=== PATIENT | male | born 1960 | race Caucasian/White ===

== ENCOUNTER → 2018-08-13 09:06 | Outpatient (CLI) | payer SELFPAY ==
[2018-08-13 11:19] LABS: Hematocrit 41.7 % (41-53); Hemoglobin 14.4 g/dL (13.5-17.5); Mean Corpuscular HGB Conc 34.4 % (30-36); Mean Corpuscular Hemoglobin 34.6 PG (26-34); Mean Corpuscular Volume 100.7 fL (80-100); Platelet Count 141 X10^3/uL (150-400); Red Blood Cell Count 4.15 X10^6/uL (4.5-5.9); Red Cell Distribution Width 13.9 % (11.6-14.8); White Blood Cell Count 6.6 X10^3/uL (4.5-11.0)
== END ==
PROVIDERS: Visit Provider Nurse Practitioner Family
DX: R19.7 Diarrhea, unspecified (principal)
CPT/HCPCS: 36415; 85027; 87045; 87177; 87899

== ENCOUNTER → 2018-08-14 08:18 | Outpatient (CLI) | payer SELFPAY | PROVIDERS: Visit Provider Nurse Practitioner Family | DX: R19.7 Diarrhea, unspecified (principal) | CPT/HCPCS: 87045; 87177; 87899 ==

== ENCOUNTER → 2019-12-07 09:34 | Outpatient (CLI) | payer OTHER, MEDICAID, SELFPAY ==
--- NOTE | 2019-12-07 09:36 | DI.RAD.S_ITS ---
PROCEDURE: XR SHOULDER RT MIN 2V INDICATIONS: right shoulder pain TECHNIQUE: 3 views of the shoulder were acquired. COMPARISON: None. FINDINGS: Bones: No fractures or dislocations. No suspicious bony lesions. Visualized ribs appear intact. Subchondral cystic change near the insertion of the supraspinatus tendon on the humerus suggests possible supraspinatus tendinopathy. Soft tissues: No suspicious soft tissue calcifications. IMPRESSION: No evidence acute bony abnormality of the right shoulder. If clinical suspicion and/or symptoms persist, further assessment with repeat plain films, or advanced imaging (e.g., CT, MRI, or bone scan) may be helpful for further assessment. Dictated by: Harvey Mustafa M.D. on 12/07/2019 at 10:06 Approved by: Harvey Mustafa M.D. on 12/07/2019 at 10:07
== END ==
PROVIDERS: Referring Provider Physician Assistant; Visit Provider Physician Assistant
DX: M25.511 Pain in right shoulder (principal)
CPT/HCPCS: 73030

== ENCOUNTER → 2019-12-15 07:13 | Outpatient (CLI) | payer OTHER, MEDICAID, SELFPAY ==
--- NOTE | 2019-12-15 07:15 | DI.MRI.S_ITS ---
PROCEDURE: MR SHOULDER RT WO CON INDICATIONS: shoulder pain, limited ROM TECHNIQUE: Noncontrast oblique coronal T2 fast spin echo with fat saturation, oblique sagittal T1 spin echo and T2 fast spin echo with fat saturation, axial T1 spin echo and T2 fast spin echo with fat saturation through the shoulder. COMPARISON: [facility], CR, XR SHOULDER RT MIN 2V, 12/07/2019, 8:32. FINDINGS: Image quality: There are motion artifacts. Rotator cuff: There is full-thickness tear of the supraspinatus tendon with tendon retraction to the musculotendinous junction. There is high-grade partial -to-thickness tear of the infraspinous tendon and subscapularis tendons with thickening, irregularity and abnormal signal of both tendons consistent with severe tendinitis. There is no rotator cuff muscle atrophy. Bones and bursae: No bone marrow contusions or fractures. There is moderate acromioclavicular and glenohumeral joint degeneration. The acromion demonstrates conventional anatomy, without an os acromiale. There is subacromial-subdeltoid and subcoracoid bursal fluid consistent with bursitis. Capsule and soft tissues: There is degenerative fraying of the anterior and posterior glenoid labrum. A small paralabral cyst is noted in the posterior labrum. In the absence of intra-articular contrast, the glenohumeral ligaments appear intact. The long head of the biceps tendon is torn. The intra-articular portion of the long head of the biceps tendon is not well visualized, likely due to tendon retraction. The rotator interval appears normal, without fibrosis. The coracohumeral ligament is normal in thickness. IMPRESSION: 1. Full-thickness tear of the supraspinatus tendon with tendon retraction. No supraspinatus muscle atrophy. 2. High-grade partial-thickness tear and severe tendinitis of the infraspinatus and subscapularis tendons. 3. Torn long head of the biceps tendon. The intra-articular portion of the long head of the biceps tendon is not well seen, likely secondary to tendon retraction. 4. Subacromial-subdeltoid and subcoracoid bursal fluid consistent with bursitis. 5. Degenerative tear of the glenoid labrum. 6. Moderate acromioclavicular and glenohumeral joint degeneration. Dictated by: Lillian Hassan M.D. on 12/15/2019 at 8:34 Approved by: Lillian Hassan M.D. on 12/15/2019 at 9:39
== END ==
PROVIDERS: PCP Nurse Practitioner Family; Referring Provider Nurse Practitioner Family; Visit Provider Nurse Practitioner Family
DX: M25.511 Pain in right shoulder (principal); M75.121 Complete rotator cuff tear or rupture of right shoulder, not specified as traumatic; S46.111A Strain of muscle, fascia and tendon of long head of biceps, right arm, initial encounter; S43.491A Other sprain of right shoulder joint, initial encounter; M19.011 Primary osteoarthritis, right shoulder
CPT/HCPCS: 73221

== ENCOUNTER → 2019-12-22 08:59 | Outpatient (CLI) | payer OTHER, MEDICAID, SELFPAY ==
[2019-12-22 10:24] LABS: Hematocrit 43.5 % (41-53); Hemoglobin 14.6 g/dL (13.5-17.5); Mean Corpuscular HGB Conc 33.6 % (30-36); Mean Corpuscular Hemoglobin 35.1 PG (26-34); Mean Corpuscular Volume 104.4 fL (80-100); Red Blood Cell Count 4.16 X10^6/uL (4.5-5.9); Red Cell Distribution Width 13.6 % (11.6-14.8)
[2019-12-22 10:26] LABS: Alanine Aminotransferase 22 IU/L (<50); Albumin 4.2 g/dL (3.5-5.0); Albumin Globulin Ratio 1.5 (1.0-2.8); Alkaline Phosphatase 56 U/L (38-126); Aspartate Aminotransferase 32 IU/L (17-59); BUN Creatinine Ratio 20.4 (6-22); Bilirubin Total 0.4 mg/dL (0.2-1.3); Blood Urea Nitrogen 19 mg/dL (9-20); Calcium 9.3 mg/dL (8.4-10.2); Carbon Dioxide 26 mmol/L (22-32); Chloride 106 mmol/L (98-107); Cholesterol 183 mg/dL (140-199); Estimated Glomerular Filt Rate > 60.0 mL/min (>60); Globulin 2.8 g/dL (1.7-4.1); Glucose 104 mg/dL (80-110); HDL Cholesterol 78 mg/dL (40-60); HEMOLYSIS < 15 (0-50); LDL Cholesterol Calculated 93 mg/dL (<100); Sodium 138 mmol/L (137-145); Triglycerides 61 mg/dL (35-150)
[2019-12-22 10:58] LABS: Prostate Specific Antigen Scrn 0.264 ng/mL (0.1-4.0)
[2019-12-22 11:08] LABS: Platelet Count 119 X10^3/uL (150-400)
[2019-12-23 16:19] LABS: Add Manual Diff / Slide Review NO; Basophils Percent Auto 2.3 % (0-2); Eosinophils Percent Auto 0.3 % (2-4); Lymphocytes Absolute Auto 3 /uL (1100-4500); Lymphocytes Percent Auto 38.7 % (25-40); Monocytes Percent Auto 11.7 % (3-14); Neutrophils Absolute Auto 4 /uL (1500-7000)
[2019-12-23 16:20] LABS: Basophils Absolute Auto 0 /uL (0-100); Eosinophils Absolute Auto 0 /uL (0-450); Monocytes Absolute Auto 1 /uL (0-900)
== END ==
PROVIDERS: PCP Nurse Practitioner Family; Referring Provider Nurse Practitioner Family; Visit Provider Nurse Practitioner Family
DX: Z13.6 Encounter for screening for cardiovascular disorders (principal); Z12.5 Encounter for screening for malignant neoplasm of prostate; Z72.0 Tobacco use
CPT/HCPCS: 36415; 80053; 80061; 85025; 85027; G0103

== ENCOUNTER → 2019-12-24 09:19 | Outpatient (CLI) | payer OTHER, MEDICAID, SELFPAY ==
[2019-12-24 10:09] LABS: Add Manual Diff / Slide Review NO; Basophils Absolute Auto 0 /uL (0-100); Basophils Percent Auto 0.5 % (0-2); Eosinophils Absolute Auto 0 /uL (0-450); Eosinophils Percent Auto 0.3 % (2-4); Hematocrit 41.4 % (41-53); Hemoglobin 14.1 g/dL (13.5-17.5); Lymphocytes Absolute Auto 2300 /uL (1100-4500); Lymphocytes Percent Auto 32.1 % (25-40); Mean Corpuscular Hemoglobin 35.2 PG (26-34); Mean Corpuscular Volume 103.5 fL (80-100); Monocytes Absolute Auto 900 /uL (0-900); Monocytes Percent Auto 12.4 % (3-14); Neutrophils Absolute Auto 3900 /uL (1500-7000); Neutrophils Percent Auto 54.7 % (50-75); Platelet Count 116 X10^3/uL (150-400); Red Cell Distribution Width 13.6 % (11.6-14.8); White Blood Cell Count 7.2 X10^3/uL (4.5-11.0)
--- NOTE | 2019-12-29 13:35 | ONC.MSW ---
Description: New Referral Navigation Reason for Referral: Thrombocytopenia Activity: Reviewed pt's referral for acuity, medical status, and immediate needs. Forwarded to scheduling for next available initial consult time.
== END ==
PROVIDERS: PCP Nurse Practitioner Family; Referring Provider Nurse Practitioner Family; Visit Provider Nurse Practitioner Family
DX: D69.6 Thrombocytopenia, unspecified (principal); D70.9 Neutropenia, unspecified
CPT/HCPCS: 36415; 85025

== ENCOUNTER → 2019-12-30 15:25 | Outpatient (CLI) | payer OTHER, MEDICAID, SELFPAY ==
[2019-12-31 10:49] LABS: COVID19 Sendout Not Detected (Not Detect)
== END ==
PROVIDERS: PCP Nurse Practitioner Family; Visit Provider Physician Assistant
DX: Z11.59 Encounter for screening for other viral diseases (principal)
CPT/HCPCS: 87635

== ENCOUNTER 2020-01-02 07:06 | Day surgery (SDC) | payer OTHER, MEDICAID, SELFPAY ==
[2020-01-02 07:36] VITALS: BMI 24.7
[2020-01-02 07:45] VITALS: BP 143/86; PULSE 84; RESP 12; TEMP 36.4; O2SAT 98
[2020-01-02] MEDS: LACTATED RINGERS 1,000 ML 200 ML IV (07:50)
--- NOTE | 2020-01-02 08:08 | PM.HP.1 ---
History of Present Illness History of Present Illness Date Patient Seen: 01/02/20 Time Patient Seen: 08:09 Chief complaint: SDC Narrative: The patient presents for colorectal sreening. They had a previous colonoscopy 12 years ago that was normal. No personal or family history of colon cancer. On further history denies any recent gastrointestinal symptoms. No nausea, vomiting, abdominal pain, loss of appetite, unexplained weight loss, change in bowel habits, diarrhea, constipation, melena, hematochezia, or bright red blood per rectum. Patient History Medical History Concussion (Acute) Decreased platelet count (Acute) Encounter for screening for malignant neoplasm of prostate (Acute) Neutropenia (Acute) Screening for malignant neoplasm of colon (Acute) Tobacco abuse (Acute) Family & Social History Tobacco & Substance use: Smoking Status Current every day smoker Smoking packs per day 0.5 alcohol intake current alcohol intake frequency 3 or more drinks per day Substance Use Type marijuana Meds Home Medications and Allergies Home Medications Medication Instructions Recorded Confirmed Type naproxen 500 mg tablet 500 mg PO BID #30 tab 12/13/19 01/02/20 Rx Allergies Allergy/AdvReac Type Severity Reaction Status Date / Time No Known Drug Allergies Allergy Verified 01/02/20 07:35 Review of Systems Review of Systems Narrative: A 10 point review of systems is negative except as noted in the HPI Exam Vital Signs (past 8 hours): - 01/02/20 07:45 Temperature 97.5 F L Pulse Rate 84 Respiratory Rate 12 Blood Pressure 143/86 H Pulse Oximetry 98 Oxygen Delivery Method Room Air Narrative Exam Narrative: General-no acute distress, well nourished HEENT-moist mucous membranes, no scleral icterus Neck-supple, no lymphadenopathy Chest- non labored respirations, clear to auscultation bilaterally Cardiac-regular rate no peripheral edema Abdomen-soft, nontender, non distended Extremities-warm, well perfused Neurological-alert and oriented, no focal deficits Assessment & Plan Assessment and plan (1) Screening for malignant neoplasm of colon: Status: Acute Assessment & Plan narrative: The patient requires colorectal screening and colonoscopy is recommended. Technical details were discussed. Risks, benefits, alternatives explained. Risks including but not limited to myocardial infarction, aspiration, bleeding, pain, missed lesion, incomplete examination, need for further radiographic studies, colonic perforation, and need for major abdominal surgery were discussed. All questions were answered to their satisfaction, and they are in agreement with this plan. COVID-19 COVID-19 status: Negative
[2020-01-02] MEDS: MIDAZOLAM 5 MG/5 ML VIAL IV (08:22)
[2020-01-02] MEDS: fentaNYL 250 MCG/5 ML INJ IV (08:22)
--- NOTE | 2020-01-02 08:42 | PM.OP.ENDO ---
Operative Date/Time/Diagnoses Date of procedure: 01/02/20 Time of procedure: 08:42 Pre-op diagnosis: Screening colonoscopy Post-op diagnosis: same Procedure & Clinicians Study performed: Colonoscopy Same procedure as scheduled: Yes Indications: 59-year-old man last colonoscopy 12 years ago presents for routine screening Surgeon: Keshawn Perez Procedure Notes SCOAP/Timeout: Performed Procedure in detail: Patient placed in left lateral recumbent position. Time out was performed. Procedural sedation was administered with Versed and Fentanyl. Examination began with a thorough inspection of the perianal area there was no evidence of fissures, fistulae, external hemorrhoids or cutaneous malignancy. The colonoscopy scope was then placed into the rectum the the lumen was insufflated with air. The scope was carefully advanced forward. Ultimately the cecum was intubated and confirmed by identification of the ileocecal valve and the confluence of the taenia. The scope was then slowly withdrawn examining colon thoroughly in all directions. In the rectum the rectal columns were identified and retroflexion of the scope was performed for inspection of the distal rectum and anal canal. The colonoscopy was notable for the followin. Quality of the preparation-for 2. No masses or polyps 3. Sigmoid diverticulosis Scope withdrawal time: 6 Sedation minutes: 20 Findings: diverticulosis Specimen(s): none sent Complications: none Impression: Diverticulosis Post-procedure Recommendations: Colonscopy in 10 years and High fiber diet Disposition: same day surgery
[2020-01-02 08:47] VITALS: BP 120/87; PULSE 71; RESP 12; TEMP 36.4; O2SAT 97
[2020-01-02 08:50] VITALS: BP 117/82; PULSE 96; RESP 10; O2SAT 99
[2020-01-02 09:02] VITALS: BP 110/77; PULSE 70; RESP 14; TEMP 36.7; O2SAT 97
--- NOTE | 2020-01-02 09:05 | SUR.PHASEI ---
reported off to Edward Tafoya Rn. Pt awake, oriented, wants to go home. IV dc'd, clothes given.
== END 2020-01-02 09:07 | disposition home or self-care (01) ==
PROVIDERS: PCP Nurse Practitioner Family; Referring Provider Nurse Practitioner Family; Visit Provider Surgery
PROC: 0DJD8ZZ Inspection of Lower Intestinal Tract, Via Natural or Artificial Opening Endoscopic (ICD-10-PCS; CPT 45378; principal; 2020-01-02 08:30)
DX: Z12.11 Encounter for screening for malignant neoplasm of colon (principal); K57.30 Diverticulosis of large intestine without perforation or abscess without bleeding; F17.210 Nicotine dependence, cigarettes, uncomplicated
CPT/HCPCS: G0121; 99152; J2250; J3010

== ENCOUNTER 2020-01-07 14:25 | Emergency (ER) | payer OTHER, MEDICAID, SELFPAY ==
[2020-01-07 14:35] VITALS: BP 186/91; PULSE 66; RESP 14; TEMP 36.7; O2SAT 100; BMI 25.8
--- NOTE | 2020-01-07 14:38 | ED.SOB ---
HPI - SOB/Dyspnea General Chief Complaint: Shortness of Breath/Dyspnea Stated Complaint: SOB, dizziness, sweating Time Seen by Provider: 01/07/20 14:27 Source: patient and EMS Mode of arrival: EMS Limitations: no limitations History of Present Illness HPI Narrative: Patient postop day 1 status post right shoulder rotator cuff surgery at [facility] in [place] got home yesterday afternoon around 3:00 p.m. has been doing well overnight until 30 minutes ago had sudden onset of diaphoresis dizziness, nausea and dyspnea. Denies any chest pain denies any calf pain. Given Zofran by EMS. No nausea at this time. Denies any dyspnea or sweating at this time. Related Data Previous Rx's Medication Instructions Recorded naproxen 500 mg tablet 500 mg PO BID #30 tab 12/13/19 Allergies Allergy/AdvReac Type Severity Reaction Status Date / Time No Known Drug Allergies Allergy Verified 01/02/20 07:35 Review of Systems Review of Systems Narrative: GENERAL: Denies chills, fatigue, malaise, fever, sweats. HEENT: Denies sinus pain, ear pain, sore throat, difficulty swallowing, dizziness. RESPIRATORY: Complains dyspnea, denies cough, wheezing, hemoptysis, sputum. CARDIOVASCULAR: Denies chest pain, palpitations, orthopnea, edema, complains of diaphoresis GASTROINTESTINAL: Complains nausea, denies vomiting, abdominal pain, diarrhea, constipation, melena. : Denies dysuria, frequency, incontinence, hematuria, urinary retention. MUSCULOSKELETAL: denies weakness, joint pain, or bony pain SKIN: Denies rash, skin lesions NEUROLOGIC: Denies weakness, headache, numbness, change in speech, confusion, seizures, incoordination. PSYCHIATRIC: No concerning psychosocial issues. ROS Unobtainable: All systems reviewed & are unremarkable except as noted in HPI and below Patient History Medical History Concussion (Acute) Decreased platelet count (Acute) Encounter for screening for malignant neoplasm of prostate (Acute) Neutropenia (Acute) Screening for malignant neoplasm of colon (Acute) Tobacco abuse (Acute) Social History Smoking Status: Current every day smoker Tobacco: How many years used: 40 quit status: considering quitting (Patient given smoking cessation handout) second hand exposure: No alcohol intake: current substance use type: marijuana (smoke, 2-3x/week) Smoking Status: Current every day smoker alcohol intake frequency: 3 or more drinks per day Substance Use Type: marijuana Exam Narrative Exam Narrative: GENERAL: patient appears stated age. Well-nourished, well-developed patient, in no distress, not toxic HEAD: Atraumatic. Normocephalic. EYES: Pupils equal round and reactive. Extraocular motions intact. No scleral icterus. No injection or drainage. ENT: Nose without bleeding, purulent drainage. Throat without erythema, tonsillar hypertrophy or exudate. Airway patent. NECK: Trachea midline. Non tender CARDIOVASCULAR: Regular rate and rhythm without murmurs, gallops, or rubs. RESPIRATORY: Clear to auscultation. Breath sounds equal bilaterally. No wheezes, rales, or rhonchi. GASTROINTESTINAL: Abdomen soft, non-tender, nondistended. EXTREMITIES: Right upper extremity in sling. No calf tenderness BACK: Nontender without deformity or crepitance. No flank tenderness. NEURO: AOx4. SKIN: No rash or erythema of visible areas PSYCH: Not anxious, is cooperative Initial Vital Signs Initial Vital Signs: Vital Signs Temperature 98.1 F 01/07/20 14:35 Pulse Rate 66 01/07/20 14:35 Respiratory Rate 14 01/07/20 14:35 Blood Pressure 186/91 H 01/07/20 14:35 Pulse Oximetry 100 01/07/20 14:35 Course Course Course Narrative: No new issues during course of stay here. Decision to Admit Date: 01/07/20 Decision to Admit time: 16:05 Orders Ordered: ED Orders 01/07/20 14:37 Consult to Respiratory Therapy Evaluate & Treat EKG-12 Lead Stat 01/07/20 14:38 XR chest 1V Stat Complete Blood Count AUTO DIFF Stat Comprehensive Metabolic Panel Stat D Dimer Stat Lactate (Lactic Acid) Stat Partial Thromboplastin Time Stat Procalcitonin Stat Prothrombin Time INR Stat Troponin & CK Cardiac Panel Stat 01/07/20 16:20 COVID19 -ED/INPAT/OR/L&D Stat 01/07/20 16:30 CT angio chest PE protocol Stat 01/07/20 16:40 Blood Culture Stat Discontinued Medications Albuterol/Ipratropium (Duoneb) 3 ml INH NOW ONE Stop: 01/07/20 14:38 Last Admin: 01/07/20 14:48 Dose: 3 ml Documented by: MODESTA Hydromorphone HCl (Dilaudid) 1 mg IV NOW ONE Stop: 01/07/20 17:36 Last Admin: 01/07/20 17:38 Dose: 1 mg Documented by: APOLONIA Ceftriaxone Sodium/Dextrose (Rocephin) 1 gm in 50 mls @ 100 mls/hr IV NOW ONE Stop: 01/07/20 16:32 Last Admin: 01/07/20 16:57 Dose: 100 mls/hr Documented by: LEATHA Sodium Chloride (Normal Saline 0.9%) 500 mls @ 1,000 mls/hr IV BOLUS ONE Stop: 01/07/20 16:59 Last Admin: 01/07/20 16:58 Dose: 1,000 mls/hr Documented by: LEATHA Methylprednisolone (Solu-Medrol 125 Mg Vial) 125 mg IV NOW ONE Stop: 01/07/20 14:38 Last Admin: 01/07/20 14:49 Dose: 125 mg Documented by: APOLONIA Morphine Sulfate (Morphine) 4 mg IV NOW ONE Stop: 01/07/20 15:50 Last Admin: 01/07/20 16:18 Dose: 4 mg Documented by: SRI Ondansetron HCl (Zofran) 4 mg IV NOW ONE Stop: 01/07/20 15:50 Last Admin: 01/07/20 16:19 Dose: 4 mg Documented by: SRI Reevaluation(s) Reevaluation #1: Spoke with patient blood lab results. Understands need for observation overnight. Time: 16:05 Consultations Consultation #1: Spoke with Orthopedics from [facility]...Robles Wright, with dr juan, agrees patient should be observed overnight. At this time nonsurgical. Agrees with blood cultures and Rocephin. Time: 16:06 Consultation #2: Spoke with [facility], hospitalist Dr. Alonso, will accept patient Would like patient to have CT chest PE protocol before transfer Time: 16:35 Vital Signs Vital signs: Vital Signs - 8 hr 01/07/20 14:35 01/07/20 15:27 01/07/20 16:30 Temperature 98.1 F Pulse Rate 66 62 Respiratory Rate 14 16 Blood Pressure 186/91 H 170/82 H Pulse Oximetry 100 97 97 01/07/20 17:45 Temperature Pulse Rate 67 Respiratory Rate 16 Blood Pressure 214/97 H Pulse Oximetry 98 MDM - SOB/Dyspnea Differential Diagnosis Differential diagnosis: Likely pulmonary embolism and other (Angina/unstable angina) Lab Data Attestation: I reviewed the patient's lab results. Result diagrams: 01/07/20 14:38 01/07/20 14:38 Labs: Lab Results 01/07/20 01/07/20 01/07/20 Range/Units 14:38 14:38 14:38 WBC 20.1 H (4.5-11.0) X10^3/uL RBC 3.73 L (4.5-5.9) X10^6/uL Hgb 12.8 L (13.5-17.5) g/dL Hct 38.4 L (41-53) % MCV 102.9 H (80-100) fL MCH 34.3 H (26-34) PG MCHC 33.4 (30-36) % RDW 13.4 (11.6-14.8) % Plt Count 107 L (150-400) X10^3/uL Neut % (Auto) 64.5 (50-75) % Lymph % (Auto) 21.0 L (25-40) % [place] % (Auto) 14.0 (3-14) % Eos % (Auto) 0.1 L (2-4) % Baso % (Auto) 0.4 (0-2) % Neut # (Auto) 22242 H (6369-9677) /uL Lymph # (Auto) 4200 (7593-8114) /uL [place] # (Auto) 2800 H (0-900) /uL Eos # (Auto) 0 (0-450) /uL Baso # (Auto) 100 (0-100) /uL PT 10.9 (10.1-12.7) SECONDS INR 1.0 (0.9-1.3) APTT 24 L (26.4-36.2) SECONDS D-Dimer < 200 (<230) ng/mL Sodium 133 L (137-145) mmol/L Potassium 3.4 (3.4-5.1) mmol/L Chloride 100 (98-107) mmol/L Carbon Dioxide 29 (22-32) mmol/L BUN 19 (9-20) mg/dL Creatinine 0.99 (0.66-1.25) mg/dL Estimated GFR > 60.0 (>60) mL/min BUN/Creatinine Ratio 19.2 (6-22) Glucose 151 H (80-110) mg/dL Lactate (0.7-2.1) mmol/L Calcium 9.1 (8.4-10.2) mg/dL Total Bilirubin 0.4 (0.2-1.3) mg/dL AST 30 (17-59) IU/L ALT 19 (<50) IU/L Alkaline Phosphatase 47 (38-126) U/L Total Creatine Kinase 311 H (55-170) U/L CK-MB (CK-2) 2.55 H (<2.37) ng/mL CK-MB (CK-2) Rel Index 0.8 L (1.5-5.0) % Troponin I < 0.012 (0.01-0.034) ng/mL Total Protein 6.7 (6.3-8.2) g/dL Albumin 4.0 (3.5-5.0) g/dL Globulin 2.7 (1.7-4.1) g/dL Albumin/Globulin Ratio 1.5 (1.0-2.8) Procalcitonin (<0.5) ng/mL COVID-19 PCR (Negative) 01/07/20 01/07/20 01/07/20 Range/Units 14:38 14:38 16:20 WBC (4.5-11.0) X10^3/uL RBC (4.5-5.9) X10^6/uL Hgb (13.5-17.5) g/dL Hct (41-53) % MCV (80-100) fL MCH (26-34) PG MCHC (30-36) % RDW (11.6-14.8) % Plt Count (150-400) X10^3/uL Neut % (Auto) (50-75) % Lymph % (Auto) (25-40) % [place] % (Auto) (3-14) % Eos % (Auto) (2-4) % Baso % (Auto) (0-2) % Neut # (Auto) (6091-5291) /uL Lymph # (Auto) (5847-4986) /uL [place] # (Auto) (0-900) /uL Eos # (Auto) (0-450) /uL Baso # (Auto) (0-100) /uL PT (10.1-12.7) SECONDS INR (0.9-1.3) APTT (26.4-36.2) SECONDS D-Dimer (<230) ng/mL Sodium (137-145) mmol/L Potassium (3.4-5.1) mmol/L Chloride (98-107) mmol/L Carbon Dioxide (22-32) mmol/L BUN (9-20) mg/dL Creatinine (0.66-1.25) mg/dL Estimated GFR (>60) mL/min BUN/Creatinine Ratio (6-22) Glucose (80-110) mg/dL Lactate 2.7 H (0.7-2.1) mmol/L Calcium (8.4-10.2) mg/dL Total Bilirubin (0.2-1.3) mg/dL AST (17-59) IU/L ALT (<50) IU/L Alkaline Phosphatase (38-126) U/L Total Creatine Kinase (55-170) U/L CK-MB (CK-2) (<2.37) ng/mL CK-MB (CK-2) Rel Index (1.5-5.0) % Troponin I (0.01-0.034) ng/mL Total Protein (6.3-8.2) g/dL Albumin (3.5-5.0) g/dL Globulin (1.7-4.1) g/dL Albumin/Globulin Ratio (1.0-2.8) Procalcitonin < 0.05 (<0.5) ng/mL COVID-19 PCR Negative (Negative) Imaging Data Chest x-ray: Radiologist's Impression: [address] [address] XRay Report Signed Patient: Adal Nugent LMR#: [id number] : 9Acct:[id number] Age/Sex: 59 / MDate of Service: 01/07/20 Loc: ED Accession Number: [id number] Procedure: XR chest 1V Ordering Provider: Christofer Darling MD PROCEDURE: XR CHEST 1V INDICATIONS: Dyspnea TECHNIQUE: One view of the chest was acquired. COMPARISON: [facility], CHEST 2 VIEW, 12/12/2014, 9:47. FINDINGS: Surgical changes and devices: None. Lungs and pleura: Lungs are clear. No pleural effusions or pneumothorax. Mediastinum: Mediastinal contours appear normal. Heart size is normal. Bones and chest wall: No suspicious bony lesions. Overlying soft tissues appear unremarkable. IMPRESSION: Normal for age, source of current dyspnea symptoms is not seen. Dictated by: Jaquan Purvis M.D. on 01/07/2020 at 15:30 Approved by: Jaquan Purvis M.D. on 01/07/2020 at 15:30 CT scan - chest: Radiologist's Impression: [address] [address] [address] Scan Report Signed Patient: Adal Nugent LMR#: [id number] : 9Acct:[id number] Age/Sex: 59 / MDate of Service: 01/07/20 Loc: ED Accession Number: [id number] Procedure: CT angio chest PE protocol Ordering Provider: Christofer Darling MD PROCEDURE: CT ANGIO CHEST PE PROTOCOL INDICATIONS: Dyspnea TECHNIQUE: After the administration of intravenous contrast, 2 mm thick sections acquired from the pulmonary apices to the posterior costophrenic angles. 3-dimensional maximum intensity projection (MIP) coronal and sagittal reformats were then acquired through the thorax. For radiation dose reduction, the following was used: automated exposure control, adjustment of mA and/or kV according to patient size. COMPARISON: [facility], CHEST 2 VIEW, 12/12/2014, 9:47. [facility], XR CHEST 1V, 01/07/2020, 14:44. FINDINGS: Image quality: Excellent. Pulmonary arteries: Pulmonary arteries are normal in size, and demonstrate no intraluminal filling defects to suggest central pulmonary embolism. Lungs and pleura: Mild dependent atelectasis can be seen at the lung bases. No pleural effusions or pneumothorax. Central and peripheral airways are patent. Mediastinum: Heart size is normal, without pericardial effusion. No mediastinal or hilar adenopathy. Thoracic aorta is normal in caliber and enhancement. Esophagus is normal in caliber, without hiatal hernia. Bones and chest wall: No suspicious bony lesions. Postoperative change of the right shoulder can be seen. Ribs and thoracic spine appear intact throughout. Thyroid gland is partially obscured. No axillary or supraclavicular adenopathy. Abdomen: Visualized upper abdominal solid organs appear normal in the early arterial phase of enhancement. IMPRESSION: Negative for pulmonary embolism. Mild dependent atelectasis. Right shoulder postoperative change. Dictated by: Rafa Richardson M.D. on 01/07/2020 at 16:42 Approved by: Rafa Richardson M.D. on 01/07/2020 at 16:44 ECG Data Attestation: I personally reviewed and interpreted this ECG as follows: Interpretation: Sinus rhythm. Rate 62, no ST elevation MDM Narrative Medical decision making narrative: Appropriate for transfer to [facility] for continuity of care. Leukocytosis indicates for observation. Patient not toxic appearing, at this time will hold on complete sepsis protocol Discharge Plan Departure Patient Disposition: [facility] Clinical Impression: Acute dyspnea Leukocytosis Qualifiers: Leukocytosis type: unspecified Qualified Code(s): D72.829 - Elevated white blood cell count, unspecified Prescriptions: No Action naproxen 500 mg tablet 500 mg PO BID Qty: 30 RF: 0 Referrals: Rashel Layne ARNP [Primary Care Provider] -
[2020-01-07 14:48] LABS: Add Manual Diff / Slide Review NO; Basophils Absolute Auto 100 /uL (0-100); Basophils Percent Auto 0.4 % (0-2); Eosinophils Absolute Auto 0 /uL (0-450); Eosinophils Percent Auto 0.1 % (2-4); Hematocrit 38.4 % (41-53); Hemoglobin 12.8 g/dL (13.5-17.5); Lymphocytes Absolute Auto 4200 /uL (1100-4500); Mean Corpuscular HGB Conc 33.4 % (30-36); Mean Corpuscular Hemoglobin 34.3 PG (26-34); Mean Corpuscular Volume 102.9 fL (80-100); Monocytes Absolute Auto 2800 /uL (0-900); Neutrophils Absolute Auto 13000 /uL (1500-7000); Neutrophils Percent Auto 64.5 % (50-75); Platelet Count 107 X10^3/uL (150-400); Red Blood Cell Count 3.73 X10^6/uL (4.5-5.9); Red Cell Distribution Width 13.4 % (11.6-14.8); White Blood Cell Count 20.1 X10^3/uL (4.5-11.0)
[2020-01-07] MEDS: ALBUTEROL/IPRATROPIUM 3 ML AMPUL INH (14:48)
[2020-01-07] MEDS: methylPREDNISolone 125 MG/2 ML VIAL IV (14:49)
[2020-01-07 15:01] LABS: Prothrombin Time 10.9 SECONDS (10.1-12.7)
[2020-01-07 15:04] LABS: PTT Partial Thromboplastin Tim 24 SECONDS (26.4-36.2)
[2020-01-07 15:05] LABS: Alanine Aminotransferase 19 IU/L (<50); Albumin Globulin Ratio 1.5 (1.0-2.8); Alkaline Phosphatase 47 U/L (38-126); Aspartate Aminotransferase 30 IU/L (17-59); BUN Creatinine Ratio 19.2 (6-22); Bilirubin Total 0.4 mg/dL (0.2-1.3); Blood Urea Nitrogen 19 mg/dL (9-20); Calcium 9.1 mg/dL (8.4-10.2); Carbon Dioxide 29 mmol/L (22-32); Chloride 100 mmol/L (98-107); Creatine Kinase 311 U/L (55-170); Estimated Glomerular Filt Rate > 60.0 mL/min (>60); Globulin 2.7 g/dL (1.7-4.1); Glucose 151 mg/dL (80-110); HEMOLYSIS < 15 (0-50); Potassium 3.4 mmol/L (3.4-5.1); Sodium 133 mmol/L (137-145); Total Protein 6.7 g/dL (6.3-8.2)
[2020-01-07 15:07] LABS: D Dimer < 200 ng/mL (<230)
[2020-01-07 15:16] LABS: Troponin I < 0.012 ng/mL (0.01-0.034)
[2020-01-07 15:20] LABS: CKMB % Relative Index 0.8 % (1.5-5.0); Creatine Kinase MB 2.55 ng/mL (<2.37)
[2020-01-07 15:27] VITALS: O2SAT 97
[2020-01-07] MEDS: MORPHINE 4 MG/ML INJ IV (16:18)
[2020-01-07] MEDS: ONDANSETRON 4 MG/2 ML INJ IV (16:19)
[2020-01-07 16:30] VITALS: BP 170/82; PULSE 62; RESP 16; O2SAT 97
--- NOTE | 2020-01-07 16:30 | DI.CT.S_ITS ---
PROCEDURE: CT ANGIO CHEST PE PROTOCOL INDICATIONS: Dyspnea TECHNIQUE: After the administration of intravenous contrast, 2 mm thick sections acquired from the pulmonary apices to the posterior costophrenic angles. 3-dimensional maximum intensity projection (MIP) coronal and sagittal reformats were then acquired through the thorax. For radiation dose reduction, the following was used: automated exposure control, adjustment of mA and/or kV according to patient size. COMPARISON: [facility], , CHEST 2 VIEW, 12/12/2014, 9:47. [facility], , XR CHEST 1V, 01/07/2020, 14:44. FINDINGS: Image quality: Excellent. Pulmonary arteries: Pulmonary arteries are normal in size, and demonstrate no intraluminal filling defects to suggest central pulmonary embolism. Lungs and pleura: Mild dependent atelectasis can be seen at the lung bases. No pleural effusions or pneumothorax. Central and peripheral airways are patent. Mediastinum: Heart size is normal, without pericardial effusion. No mediastinal or hilar adenopathy. Thoracic aorta is normal in caliber and enhancement. Esophagus is normal in caliber, without hiatal hernia. Bones and chest wall: No suspicious bony lesions. Postoperative change of the right shoulder can be seen. Ribs and thoracic spine appear intact throughout. Thyroid gland is partially obscured. No axillary or supraclavicular adenopathy. Abdomen: Visualized upper abdominal solid organs appear normal in the early arterial phase of enhancement. IMPRESSION: Negative for pulmonary embolism. Mild dependent atelectasis. Right shoulder postoperative change. Dictated by: Rafa Richardson M.D. on 01/07/2020 at 16:42 Approved by: Rafa Richardson M.D. on 01/07/2020 at 16:44
[2020-01-07 16:36] LABS: Procalcitonin < 0.05 ng/mL (<0.5)
[2020-01-07] MEDS: CEFTRIAXONE 1 GM/50 ML FROZ.PIGGY IV (16:57)
[2020-01-07] MEDS: SODIUM CHLORIDE 0.9% 500 ML 1000 ML IV (16:58)
[2020-01-07 17:13] LABS: COVID19 -Nasal RAPID Negative (Negative)
[2020-01-07 17:20] LABS: Lactate (Lactic Acid) 2.7 mmol/L (0.7-2.1)
[2020-01-07] MEDS: HYDROMORPHONE 1 MG INJ IV (17:38)
[2020-01-07 17:45] VITALS: BP 214/97; PULSE 67; RESP 16; O2SAT 98
[2020-01-07 18:08] LABS: Reflexed Lactate in 2 Hours Y
[2020-01-07 18:17] VITALS: BP 173/86; PULSE 68; RESP 16; O2SAT 97
== END 2020-01-07 18:43 | disposition short-term general hospital (02) ==
PROVIDERS: Emergency Provider Emergency Medicine; PCP Nurse Practitioner Family
DX: Z98.890 Other specified postprocedural states (principal); R06.00 Dyspnea, unspecified; D72.829 Elevated white blood cell count, unspecified; R42 Dizziness and giddiness
CPT/HCPCS: 36415; 71045; 71275; 80053; 82550; 82553; 83605; 84145; 84484; 85025; 85379; 85610; 85730; 87040; 87635; 93005; 94640; 96365; 96375; 99284; J1170; J2270; J2405; J2930; Q9967

== ENCOUNTER 2020-02-14 08:15 | Outpatient (RCR) | payer OTHER, MEDICAID, SELFPAY ==
--- NOTE | 2020-01-31 14:02 | PT.OIE ---
Current Diagnoses Strain of muscle(s) and tendon(s) of the rotator cuff of right shoulder, subsequent encounter (01/31/20) Past Medical History (Last Reviewed 01/07/20 @ 14:41 by Christofer Darling MD) Concussion (Acute) Decreased platelet count (Acute) Encounter for screening for malignant neoplasm of prostate (Acute) Neutropenia (Acute) Screening for malignant neoplasm of colon (Acute) Tobacco abuse (Acute) Visit Care Team Role Provider Type Alannah Acosta PA-C Referring Provider Non-Staff Specialty: Medical Address: [address] [place] [address], [id number] Email: AMENA Santiago Family Provider Advanced Treatment Manager Primary Care Provider Specialty: Family Practice Address: [address] [place] [address], [address] Email: [email or web address] Marcos Parrish Attending Provider Non-Staff Specialty: Medical Address: [address] [place] [address], [id number] Email: Physical Therapy Initial Evaluation PT-OP-A Visit Information Start: 01/31/20 07:29 Freq: Status: Active Protocol: Document 01/31/20 08:17 MB (Rec: 01/31/20 08:40 MB [id number]) Out-Patient Physical Therapy Visit Information Visit Information Visit Type Initial Evaluation Visit Note [employer], 1 eval and 24 units Visit Start Time 08:17 Visit Stop Time 09:00 Total Visit Minutes 43 Visit Number 1 Evaluation Information Evaluation Date 01/31/20 PT-OP-B Current Condition Start: 01/31/20 07:29 Freq: Status: Active Protocol: Document 01/31/20 08:17 MB (Rec: 01/31/20 08:40 MB [id number]) Current Condition History of Current Condition Onset Date 01/06/2020 Right rotator cuff arthroscopy Current Complaints Sleeping and pain in right shoulder History of Current Condition Pt works as a [employer] and has not been able to do anything since surgery. Pt reports pain gets up to 2-3/10 in the anterior of right shoulder. Pt does not wear sling into therapy. He is off all medications. Pt is right handed. Pt reports some aching in his right hand. Protocol does not mention when pt can take off the sling. He is putting the sling on when he needs it. He is trying to get his right arm to swing more. Sleeping is problematic. He has been sleeping in a recliner some. He is sleeping some on his left side and he moves around a lot in the bed. PMH: right elbow surgery 12 years ago, smoking, concussion , thrombocytopoenia and decreased platelet count and neutropenia, alcohol intake PT protocol as brought by patient from surgeon: dx rotator cuff repair (large to massive 3-5+ cm), sub acromial . No strengthening until 12 weeks post-op. Phase 1 0-6 weeks gentle passive ROM shoulder, scapular mobilization, ultra sling, thoracic mobilization, Phase 2 con't gentle range and begin gentle strengthening Treatment Goals Patient/Caregiver Goals Pt's goal is to get back to working. 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 PT-OP-C Subjective Start: 01/31/20 07:29 Freq: Status: Active Protocol: Document 01/31/20 08:17 MB (Rec: 01/31/20 08:40 MB [id number]) OP-PT Subjective Patient Comments Patient Comments See history of current condition. Patient Questionnaires Quick Dash- Upper Extremity Quick Dash UE Impairment 60 to 79% Impaired (Score 60- 79) PT-OP-J Posture/Palpation/Skin Start: 01/31/20 07:29 Freq: Status: Active Protocol: Document 01/31/20 08:17 MB (Rec: 01/31/20 14:00 MB [id number]) Posture Evaluation Comments Posture Comments Standing: foward head, rounded shoulders, decreased thoracic kyphosis, increased lumbar lordosis, increased anterior tilt pelvis, right shoulder mildly higher than the left and right iliac crest higher than the left. PT-OP-K Range of Motion Start: 01/31/20 07:29 Freq: Status: Active Protocol: Document 01/31/20 08:17 MB (Rec: 01/31/20 14:00 MB [id number]) Cervical Spine Range of Motion Cervical Spine Active Testing Position Standing Flexion 35 Extension 30 Rotation Left 55 Rotation Right 50 Lateral Flexion Left 15 Lateral Flexion Right 21 Shoulder Goniometric Range of Motion Shoulder Right Passive Testing Position Supine Flexion 75 Abduction 50 External Rotation at 45 degrees 0 Abduction Comments Internal rotation at 45 deg abduction is 20 deg Left Shoulder ROM WFL Yes Shoulder ROM Limitations Comments Pt actively moves right shoulder to 72 deg flexion and 50 deg abduction and reports 7/10 pain and PT encourages him to con't with passive motion only at this time Elbow/Forearm Range of Motion Elbow/Forearm ROM Limitations Comments R elbow lacks 30 deg of extension from previous elbow surgery PT-OP-M Strength Start: 01/31/20 07:29 Freq: Status: Active Protocol: Document 01/31/20 08:17 MB (Rec: 01/31/20 14:00 MB [id number]) Shoulder Strength Shoulder Manual Muscle Testing Right Comments All deferred post-op Left Flexion 5 Normal Abduction (C5) 5 Normal External Rotation 4 Good Internal Rotation 5 Normal Elbow/Forearm Strength Elbow and Forearm Manual Muscle Testing Right Pronation 4 Good Supination 4 Good Comments Flexion and extension deferred post-op Left Flexion (C6) 5 Normal Extension (C7) 5 Normal Pronation 5 Normal Supination 5 Normal Wrist Strength Wrist Manual Muscle Testing Right Flexion (C7) 5 Normal Extension (C6) 5 Normal Left Flexion (C7) 5 Normal Extension (C6) 4 Good PT-OP-Q Treatments Start: 01/31/20 07:29 Freq: Status: Active Protocol: Document 01/31/20 08:17 MB (Rec: 01/31/20 10:14 MB [id number]) Therapeutic Exercises Sitting Exercises Cervical rotation and extension Side bilateral Comments 2 reps, to perform at home Standing Exercises Scapular retraction Side bilateral Comments Ed to perform throughout the day Pendulums for right shoulder Side right Comments Demo today, ed to perform at home Self-Care/Home Management Treatment Education Caregiver Education Ed pt in proper sleeping position with cervical and UE support, ed pt in benefits of getting racquet balls for future STM PT-OP-T Assessment and Plan Start: 01/31/20 07:29 Freq: Status: Active Protocol: Document 01/31/20 08:17 MB (Rec: 01/31/20 10:29 MB [id number]) Physical Therapy Assessment Rehab Potential Rehabilitation Potential Good Evaluation Complexity Number of Personal Factors/Comorbidities 1-2 Number of Body Systems Impaired 1-2 Clinical Presentation at Evaluation Stable Impairments Impairments Activity Tolerance,Functional Activities,Integument,Pain, Posture,ROM,Soft Tissue Mobility,Strength Goals 4 Custodial Goal (LTG) Pt will perform progressive HEP with I to improve range and functional use by 2019. LTG Duration 8 weeks 3 Refinisher Goal (LTG) Pt will present with right shoulder flexion, abduction, IR and ER strength to at least 4/5 to improve functional activity performance by 2019. LTG Duration 16 weeks 2 Refinisher Goal (LTG) Pt will present with right shoulder AROM to at least 150 deg flexion and abduction and normal functional IR for tucking in shirt and putting on belt by 05/01/2020. LTG Duration 12 weeks 1 Impairment QuickDASH score reflects 68.18 % impairment Custodial Goal (LTG) Pt will present with improved QuickDASH score to reflect no more than 15% impairment to prepare for normal ADLs, IADLs and work by 05/01/2020. LTG Duration 12 weeks Assessment Summary Assessment Pt is a 59 y/o male presenting post-op right rotator cuff surgery 01/06/2020. He does not wear sling into PT evaluation and states that he wears it as needed. PT does not see instructions on protocol that pt brings in about sling use. He has been performing passive and some very gentle active motion of his arm and PT does communicate that he should be performing pendulums at this time and PT also provides cervial ROM and scapular retraction. Of note, pt has a 30 deg right elbow extension limitation that he states is from previous right elbow surgery. This can certainly influence right shoulder range and strength of biceps and triceps. Post-op, he presents with postural, range and strength deficits. 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 Will be following along protocol guidelines. Anticipate 3-4 month PT course . Physical Therapy Plan Frequency and Duration Frequency of Treatment 2x/Week Duration of Treatment 16 weeks Plan of Care Start Date 01/31/20 Plan of Care End Date 06/01/20 Therapeutic Interventions Therapeutic Interventions Aquatic Therapy,Canalithic Repositioning,Home Exercise Program,Joint Mobilizations, Manual Therapy,Neuromuscular Re-education,Patient/Caregiver Education,Self-Care/Home Management,Sensory Integration ,Soft Tissue Mobilization, Taping,Therapeutic Activities, Therapeutic Exercises Modalities Cold Pack/Ice Massage,Electric Stimulation,Hot Packs, Ultrasound Other Therapeutic Interventions 1x/wk 6 weeks and then 2x/wk after Next Visit Focus/Plan Next Note Type Treatment Note Next Visit Plan Progress HEP, consider STM with racquet ball, manual work by PT including cervical and thoracic STM and right shoulder PROM
--- NOTE | 2020-01-31 14:02 | PT.OPPOC ---
Physical, Occupational & Speech Therapy At [facility] Current Diagnoses Strain of muscle(s) and tendon(s) of the rotator cuff of right shoulder, subsequent encounter (01/31/20) Visit Care Team Role Provider Type Alannah Acosta PA-C Referring Provider Non-Staff Specialty: Medical Address: [address] [place] [address], [id number] Email: AMENA Santiago Family Provider Advanced Side Boss Primary Care Provider Specialty: Family Practice Address: [address] [place] [address], [address] Email: [email or web address] Marcos Parrish Attending Provider Non-Staff Specialty: Medical Address: [address] [place] [address], [id number] Email: Plan Of Care PT-OP-T Assessment and Plan Start: 01/31/20 07:29 Freq: Status: Active Protocol: Document 01/31/20 08:17 MB (Rec: 01/31/20 10:29 MB [id number]) Physical Therapy Assessment Rehab Potential Rehabilitation Potential Good Evaluation Complexity Number of Personal Factors/Comorbidities 1-2 Number of Body Systems Impaired 1-2 Clinical Presentation at Evaluation Stable Impairments Impairments Activity Tolerance,Functional Activities,Integument,Pain, Posture,ROM,Soft Tissue Mobility,Strength Goals 4 [facility] Goal (LTG) Pt will perform progressive HEP with I to improve range and functional use by 2019. LTG Duration 8 weeks 3 Cable Testers Helper Goal (LTG) Pt will present with right shoulder flexion, abduction, IR and ER strength to at least 4/5 to improve functional activity performance by 2019. LTG Duration 16 weeks 2 Cable Testers Helper Goal (LTG) Pt will present with right shoulder AROM to at least 150 deg flexion and abduction and normal functional IR for tucking in shirt and putting on belt by 05/01/2020. LTG Duration 12 weeks 1 Impairment QuickDASH score reflects 68.18 % impairment Cable Testers Helper Goal (LTG) Pt will present with improved QuickDASH score to reflect no more than 15% impairment to prepare for normal ADLs, IADLs and work by 05/01/2020. LTG Duration 12 weeks Assessment Summary Assessment Pt is a 59 y/o male presenting post-op right rotator cuff surgery 01/06/2020. He does not wear sling into PT evaluation and states that he wears it as needed. PT does not see instructions on protocol that pt brings in about sling use. He has been performing passive and some very gentle active motion of his arm and PT does communicate that he should be performing pendulums at this time and PT also provides cervial ROM and scapular retraction. Of note, pt has a 30 deg right elbow extension limitation that he states is from previous right elbow surgery. This can certainly influence right shoulder range and strength of biceps and triceps. Post-op, he presents with postural, range and strength deficits. 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 Will be following along protocol guidelines. Anticipate 3-4 month PT course . Physical Therapy Plan Frequency and Duration Frequency of Treatment 2x/Week Duration of Treatment 16 weeks Plan of Care Start Date 01/31/20 Plan of Care End Date 06/01/20 Therapeutic Interventions Therapeutic Interventions Aquatic Therapy,Canalithic Repositioning,Home Exercise Program,Joint Mobilizations, Manual Therapy,Neuromuscular Re-education,Patient/Caregiver Education,Self-Care/Home Management,Sensory Integration ,Soft Tissue Mobilization, Taping,Therapeutic Activities, Therapeutic Exercises Modalities Cold Pack/Ice Massage,Electric Stimulation,Hot Packs, Ultrasound Other Therapeutic Interventions 1x/wk 6 weeks and then 2x/wk after Next Visit Focus/Plan Next Note Type Treatment Note Next Visit Plan Progress HEP, consider STM with racquet ball, manual work by PT including cervical and thoracic STM and right shoulder PROM Plan of Care Dates Plan of Care Start Date 01/31/20 Plan of Care End Date 06/01/20 Electronically Signed by: Silvia Brown PT 01/31/20 [id number] Please Sign and Return: I have reviewed this Plan of Care and certify that the skilled therapy services above are required to meet the patient?s needs. Physician Signature Date Printed Name and Credentials Clinical Instructor Signature Printed Name and Credentials
--- NOTE | 2020-02-07 09:01 | PT.OTN ---
Current Diagnoses Strain of muscle(s) and tendon(s) of the rotator cuff of right shoulder, subsequent encounter (02/07/20) Physical Therapy Treatment Note PT-OP-A Visit Information Start: 01/31/20 07:29 Freq: Status: Active Protocol: Document 02/07/20 08:17 MB (Rec: 02/07/20 09:00 MB [id number]) Out-Patient Physical Therapy Visit Information Visit Information Visit Type Treatment Note Visit Note [employer], 1 eval and 24 units Visit Start Time 08:17 Visit Stop Time 09:00 Total Visit Minutes 43 Visit Number 2 PT-OP-B Current Condition Start: 01/31/20 07:29 Freq: Status: Active Protocol: Document 01/31/20 08:17 MB (Rec: 01/31/20 08:40 MB [id number]) Current Condition History of Current Condition Onset Date 01/06/2020 Right rotator cuff arthroscopy Current Complaints Sleeping and pain in right shoulder History of Current Condition Pt works as a [employer] and has not been able to do anything since surgery. Pt reports pain gets up to 2-3/10 in the anterior of right shoulder. Pt does not wear sling into therapy. He is off all medications. Pt is right handed. Pt reports some aching in his right hand. Protocol does not mention when pt can take off the sling. He is putting the sling on when he needs it. He is trying to get his right arm to swing more. Sleeping is problematic. He has been sleeping in a recliner some. He is sleeping some on his left side and he moves around a lot in the bed. PMH: right elbow surgery 12 years ago, smoking, concussion , thrombocytopoenia and decreased platelet count and neutropenia, alcohol intake PT protocol as brought by patient from surgeon: dx rotator cuff repair (large to massive 3-5+ cm), sub acromial . No strengthening until 12 weeks post-op. Phase 1 0-6 weeks gentle passive ROM shoulder, scapular mobilization, ultra sling, thoracic mobilization, Phase 2 con't gentle range and begin gentle strengthening Treatment Goals Patient/Caregiver Goals Pt's goal is to get back to working. 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 PT-OP-C Subjective Start: 01/31/20 07:29 Freq: Status: Active Protocol: Document 02/07/20 08:17 MB (Rec: 02/07/20 09:00 MB [id number]) OP-PT Subjective Patient Comments Patient Comments I'm concerned about the appointments and running out of visits. PT-OP-J Posture/Palpation/Skin Start: 01/31/20 07:29 Freq: Status: Active Protocol: Document 01/31/20 08:17 MB (Rec: 01/31/20 14:00 MB [id number]) Posture Evaluation Comments Posture Comments Standing: foward head, rounded shoulders, decreased thoracic kyphosis, increased lumbar lordosis, increased anterior tilt pelvis, right shoulder mildly higher than the left and right iliac crest higher than the left. PT-OP-K Range of Motion Start: 01/31/20 07:29 Freq: Status: Active Protocol: Document 01/31/20 08:17 MB (Rec: 01/31/20 14:00 MB [id number]) Cervical Spine Range of Motion Cervical Spine Active Testing Position Standing Flexion 35 Extension 30 Rotation Left 55 Rotation Right 50 Lateral Flexion Left 15 Lateral Flexion Right 21 Shoulder Goniometric Range of Motion Shoulder Right Passive Testing Position Supine Flexion 75 Abduction 50 External Rotation at 45 degrees 0 Abduction Comments Internal rotation at 45 deg abduction is 20 deg Left Shoulder ROM WFL Yes Shoulder ROM Limitations Comments Pt actively moves right shoulder to 72 deg flexion and 50 deg abduction and reports 7/10 pain and PT encourages him to con't with passive motion only at this time Elbow/Forearm Range of Motion Elbow/Forearm ROM Limitations Comments R elbow lacks 30 deg of extension from previous elbow surgery PT-OP-M Strength Start: 01/31/20 07:29 Freq: Status: Active Protocol: Document 01/31/20 08:17 MB (Rec: 01/31/20 14:00 MB [id number]) Shoulder Strength Shoulder Manual Muscle Testing Right Comments All deferred post-op Left Flexion 5 Normal Abduction (C5) 5 Normal External Rotation 4 Good Internal Rotation 5 Normal Elbow/Forearm Strength Elbow and Forearm Manual Muscle Testing Right Pronation 4 Good Supination 4 Good Comments Flexion and extension deferred post-op Left Flexion (C6) 5 Normal Extension (C7) 5 Normal Pronation 5 Normal Supination 5 Normal Wrist Strength Wrist Manual Muscle Testing Right Flexion (C7) 5 Normal Extension (C6) 5 Normal Left Flexion (C7) 5 Normal Extension (C6) 4 Good PT-OP-Q Treatments Start: 01/31/20 07:29 Freq: Status: Active Protocol: Document 02/07/20 08:17 MB (Rec: 02/07/20 09:00 MB [id number]) Therapeutic Exercises Supine Exercises PROM flexion with left hand Side right Comments Cervical spine supported, 5 reps Sitting Exercises Upper traps MWM with active cervical ROM Side right Comments Racquet ball STM with active cervical rotation Standing Exercises Infraspinatus STM with racquet ball Side right Comments Pt reports hot spot in this area Instrascapular STM with racquet ball Side right Comments Pt reports no real hot spots Scapular retraction Side bilateral Comments Pt demonstrates today Pendulums for right shoulder Side right Comments Pt demonstrates today Manual Therapy Treatment Other Other Manual Treatments PROM right shoulder flexion and abduction, pt supine: 10 reps and range increases to 105 flexion and 85 deg abduction, gentle right biceps STM PT-OP-T Assessment and Plan Start: 01/31/20 07:29 Freq: Status: Active Protocol: Document 02/07/20 08:17 MB (Rec: 02/07/20 09:00 MB [id number]) Physical Therapy Assessment Rehab Potential Rehabilitation Potential Good Evaluation Complexity Number of Personal Factors/Comorbidities 1-2 Number of Body Systems Impaired 1-2 Clinical Presentation at Evaluation Stable Impairments Impairments Activity Tolerance,Functional Activities,Integument,Pain, Posture,ROM,Soft Tissue Mobility,Strength Goals 4 Professor Of Mathematics Goal (LTG) Pt will perform progressive HEP with I to improve range and functional use by 2019. LTG Duration 8 weeks 3 Detention Goal (LTG) Pt will present with right shoulder flexion, abduction, IR and ER strength to at least 4/5 to improve functional activity performance by 2019. LTG Duration 16 weeks 2 Professor Of Mathematics Goal (LTG) Pt will present with right shoulder AROM to at least 150 deg flexion and abduction and normal functional IR for tucking in shirt and putting on belt by 05/01/2020. LTG Duration 12 weeks 1 Impairment QuickDASH score reflects 68.18 % impairment Detention Goal (LTG) Pt will present with improved QuickDASH score to reflect no more than 15% impairment to prepare for normal ADLs, IADLs and work by 05/01/2020. LTG Duration 12 weeks Assessment Summary Assessment Pt tends to perform active motion with the right arm. Will be following along protocol guidelines. Progressed racquet ball massage and PROM today. Anticipate 3-4 month PT course . Physical Therapy Plan Frequency and Duration Frequency of Treatment 2x/Week Duration of Treatment 16 weeks Plan of Care Start Date 01/31/20 Plan of Care End Date 06/01/20 Therapeutic Interventions Therapeutic Interventions Aquatic Therapy,Canalithic Repositioning,Home Exercise Program,Joint Mobilizations, Manual Therapy,Neuromuscular Re-education,Patient/Caregiver Education,Self-Care/Home Management,Sensory Integration ,Soft Tissue Mobilization, Taping,Therapeutic Activities, Therapeutic Exercises Modalities Cold Pack/Ice Massage,Electric Stimulation,Hot Packs, Ultrasound Other Therapeutic Interventions 1x/wk 6 weeks and then 2x/wk after Next Visit Focus/Plan Next Note Type Treatment Note Next Visit Plan Progress HEP, manual work by PT including cervical and thoracic STM and right shoulder PROM as well as scapular mobs prone
--- NOTE | 2020-02-14 08:56 | PT.OTN ---
Current Diagnoses Strain of muscle(s) and tendon(s) of the rotator cuff of right shoulder, subsequent encounter (02/14/20) Physical Therapy Treatment Note PT-OP-A Visit Information Start: 01/31/20 07:29 Freq: Status: Active Protocol: Document 02/14/20 08:10 MB (Rec: 02/14/20 08:52 MB [id number]) Out-Patient Physical Therapy Visit Information Visit Information Visit Type Treatment Note Visit Note [employer], 1 eval and 24 units Visit Start Time 08:10 Visit Stop Time 00:50 Total Visit Minutes 40 Visit Number 3 PT-OP-B Current Condition Start: 01/31/20 07:29 Freq: Status: Active Protocol: Document 01/31/20 08:17 MB (Rec: 01/31/20 08:40 MB [id number]) Current Condition History of Current Condition Onset Date 01/06/2020 Right rotator cuff arthroscopy Current Complaints Sleeping and pain in right shoulder History of Current Condition Pt works as a [employer] and has not been able to do anything since surgery. Pt reports pain gets up to 2-3/10 in the anterior of right shoulder. Pt does not wear sling into therapy. He is off all medications. Pt is right handed. Pt reports some aching in his right hand. Protocol does not mention when pt can take off the sling. He is putting the sling on when he needs it. He is trying to get his right arm to swing more. Sleeping is problematic. He has been sleeping in a recliner some. He is sleeping some on his left side and he moves around a lot in the bed. PMH: right elbow surgery 12 years ago, smoking, concussion , thrombocytopoenia and decreased platelet count and neutropenia, alcohol intake PT protocol as brought by patient from surgeon: dx rotator cuff repair (large to massive 3-5+ cm), sub acromial . No strengthening until 12 weeks post-op. Phase 1 0-6 weeks gentle passive ROM shoulder, scapular mobilization, ultra sling, thoracic mobilization, Phase 2 con't gentle range and begin gentle strengthening Treatment Goals Patient/Caregiver Goals Pt's goal is to get back to working. 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 PT-OP-C Subjective Start: 01/31/20 07:29 Freq: Status: Active Protocol: Document 02/14/20 08:10 MB (Rec: 02/14/20 08:52 MB [id number]) OP-PT Subjective Patient Comments Patient Comments I'm working it. You're going to be surprised. PT-OP-J Posture/Palpation/Skin Start: 01/31/20 07:29 Freq: Status: Active Protocol: Document 01/31/20 08:17 MB (Rec: 01/31/20 14:00 MB [id number]) Posture Evaluation Comments Posture Comments Standing: foward head, rounded shoulders, decreased thoracic kyphosis, increased lumbar lordosis, increased anterior tilt pelvis, right shoulder mildly higher than the left and right iliac crest higher than the left. PT-OP-K Range of Motion Start: 01/31/20 07:29 Freq: Status: Active Protocol: Document 01/31/20 08:17 MB (Rec: 01/31/20 14:00 MB [id number]) Cervical Spine Range of Motion Cervical Spine Active Testing Position Standing Flexion 35 Extension 30 Rotation Left 55 Rotation Right 50 Lateral Flexion Left 15 Lateral Flexion Right 21 Shoulder Goniometric Range of Motion Shoulder Right Passive Testing Position Supine Flexion 75 Abduction 50 External Rotation at 45 degrees 0 Abduction Comments Internal rotation at 45 deg abduction is 20 deg Left Shoulder ROM WFL Yes Shoulder ROM Limitations Comments Pt actively moves right shoulder to 72 deg flexion and 50 deg abduction and reports 7/10 pain and PT encourages him to con't with passive motion only at this time Elbow/Forearm Range of Motion Elbow/Forearm ROM Limitations Comments R elbow lacks 30 deg of extension from previous elbow surgery PT-OP-M Strength Start: 01/31/20 07:29 Freq: Status: Active Protocol: Document 01/31/20 08:17 MB (Rec: 01/31/20 14:00 MB [id number]) Shoulder Strength Shoulder Manual Muscle Testing Right Comments All deferred post-op Left Flexion 5 Normal Abduction (C5) 5 Normal External Rotation 4 Good Internal Rotation 5 Normal Elbow/Forearm Strength Elbow and Forearm Manual Muscle Testing Right Pronation 4 Good Supination 4 Good Comments Flexion and extension deferred post-op Left Flexion (C6) 5 Normal Extension (C7) 5 Normal Pronation 5 Normal Supination 5 Normal Wrist Strength Wrist Manual Muscle Testing Right Flexion (C7) 5 Normal Extension (C6) 5 Normal Left Flexion (C7) 5 Normal Extension (C6) 4 Good PT-OP-Q Treatments Start: 01/31/20 07:29 Freq: Status: Active Protocol: Document 02/14/20 08:10 MB (Rec: 02/14/20 08:52 MB [id number]) Therapeutic Exercises Supine Exercises Theraband horizontal abduction and triceps strengthening Side bilateral Reps/Minutes 15 Comments Level 1 band, cues for slow Posterior capsule stretch Side bilateral Reps/Minutes 2 Comments B 30 sec Standing Exercises Deltoid STM with racquet ball Comments Verbally reviewed and provided handout today Pillow case flexion AAROM Side bilateral Reps/Minutes 10 reps Comments AAROM with left hand, palms medial, thumbs forward, scap retraction MWM infraspinatus with racquet ball Side right Comments Racquet ball at trigger point and active shoulder ER and IR Manual Therapy Treatment Other Other Manual Treatments Pt prone: B scapular mobs and positional release right levator and traps, PA thoracic mobs grade IV PT-OP-T Assessment and Plan Start: 01/31/20 07:29 Freq: Status: Active Protocol: Document 02/14/20 08:10 MB (Rec: 02/14/20 08:52 MB [id number]) Physical Therapy Assessment Rehab Potential Rehabilitation Potential Good Evaluation Complexity Number of Personal Factors/Comorbidities 1-2 Number of Body Systems Impaired 1-2 Clinical Presentation at Evaluation Stable Impairments Impairments Activity Tolerance,Functional Activities,Integument,Pain, Posture,ROM,Soft Tissue Mobility,Strength Goals 4 Logging Crew Foreman Goal (LTG) Pt will perform progressive HEP with I to improve range and functional use by 2019. LTG Duration 8 weeks 3 Logging Crew Foreman Goal (LTG) Pt will present with right shoulder flexion, abduction, IR and ER strength to at least 4/5 to improve functional activity performance by 2019. LTG Duration 16 weeks 2 Logging Crew Foreman Goal (LTG) Pt will present with right shoulder AROM to at least 150 deg flexion and abduction and normal functional IR for tucking in shirt and putting on belt by 05/01/2020. LTG Duration 12 weeks 1 Impairment QuickDASH score reflects 68.18 % impairment Residential Goal (LTG) Pt will present with improved QuickDASH score to reflect no more than 15% impairment to prepare for normal ADLs, IADLs and work by 05/01/2020. LTG Duration 12 weeks Assessment Summary Assessment Pt arrives and demonstrates active right shoulder flexion and abduction 130 deg in standing. He requested progression is safe with stopping if too much and returns to surgeon this week. Pt demonstrates push up when he gets into prone and PT asks him to clear with surgeon. Pt states that he is using his right hand to help wash his hair. Progressed exercises today. Con't progression. Physical Therapy Plan Frequency and Duration Frequency of Treatment 2x/Week Duration of Treatment 16 weeks Plan of Care Start Date 01/31/20 Plan of Care End Date 06/01/20 Therapeutic Interventions Therapeutic Interventions Aquatic Therapy,Canalithic Repositioning,Home Exercise Program,Joint Mobilizations, Manual Therapy,Neuromuscular Re-education,Patient/Caregiver Education,Self-Care/Home Management,Sensory Integration ,Soft Tissue Mobilization, Taping,Therapeutic Activities, Therapeutic Exercises Modalities Cold Pack/Ice Massage,Electric Stimulation,Hot Packs, Ultrasound Other Therapeutic Interventions 1x/wk 6 weeks and then 2x/wk after Next Visit Focus/Plan Next Note Type Treatment Note Next Visit Plan Con't progression, pt is processing rapidly and he will ask more questions of his surgeon this week. Progress to arm bike soon.
--- NOTE | 2020-02-16 13:27 | PT.OPDS ---
Current Diagnoses Strain of muscle(s) and tendon(s) of the rotator cuff of right shoulder, subsequent encounter (02/14/20) Visit Care Team Role Provider Type Alannah Acosta PA-C Referring Provider Non-Staff Specialty: Medical Address: [address] [place] [address], [place], [address] Email: AMENA Santiago Family Provider Advanced [employer] Estate Marketing Coordinator Primary Care Provider Specialty: Family Practice Address: [address] [place] [address], [id number] Email: [email or web address] Marcos Parrish Attending Provider Non-Staff Specialty: Medical Address: [address] [place] [address], [place], [address] Email: Visit Number Visit Number 3 Discharge Summary PT-OP-B Current Condition Start: 01/31/20 07:29 Freq: Status: Active Protocol: Document 01/31/20 08:17 MB (Rec: 01/31/20 08:40 MB [id number]) Current Condition History of Current Condition Onset Date 01/06/2020 Right rotator cuff arthroscopy Current Complaints Sleeping and pain in right shoulder History of Current Condition Pt works as a [employer] and has not been able to do anything since surgery. Pt reports pain gets up to 2-3/10 in the anterior of right shoulder. Pt does not wear sling into therapy. He is off all medications. Pt is right handed. Pt reports some aching in his right hand. Protocol does not mention when pt can take off the sling. He is putting the sling on when he needs it. He is trying to get his right arm to swing more. Sleeping is problematic. He has been sleeping in a recliner some. He is sleeping some on his left side and he moves around a lot in the bed. PMH: right elbow surgery 12 years ago, smoking, concussion , thrombocytopoenia and decreased platelet count and neutropenia, alcohol intake PT protocol as brought by patient from surgeon: dx rotator cuff repair (large to massive 3-5+ cm), sub acromial . No strengthening until 12 weeks post-op. Phase 1 0-6 weeks gentle passive ROM shoulder, scapular mobilization, ultra sling, thoracic mobilization, Phase 2 con't gentle range and begin gentle strengthening Treatment Goals Patient/Caregiver Goals Pt's goal is to get back to working. 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 PT-OP-C Subjective Start: 01/31/20 07:29 Freq: Status: Active Protocol: Document 02/14/20 08:10 MB (Rec: 02/14/20 08:52 MB [id number]) OP-PT Subjective Patient Comments Patient Comments I'm working it. You're going to be surprised. PT-OP-J Posture/Palpation/Skin Start: 01/31/20 07:29 Freq: Status: Active Protocol: Document 01/31/20 08:17 MB (Rec: 01/31/20 14:00 MB [id number]) Posture Evaluation Comments Posture Comments Standing: foward head, rounded shoulders, decreased thoracic kyphosis, increased lumbar lordosis, increased anterior tilt pelvis, right shoulder mildly higher than the left and right iliac crest higher than the left. PT-OP-K Range of Motion Start: 01/31/20 07:29 Freq: Status: Active Protocol: Document 01/31/20 08:17 MB (Rec: 01/31/20 14:00 MB [id number]) Cervical Spine Range of Motion Cervical Spine Active Testing Position Standing Flexion 35 Extension 30 Rotation Left 55 Rotation Right 50 Lateral Flexion Left 15 Lateral Flexion Right 21 Shoulder Goniometric Range of Motion Shoulder Right Passive Testing Position Supine Flexion 75 Abduction 50 External Rotation at 45 degrees 0 Abduction Comments Internal rotation at 45 deg abduction is 20 deg Left Shoulder ROM WFL Yes Shoulder ROM Limitations Comments Pt actively moves right shoulder to 72 deg flexion and 50 deg abduction and reports 7/10 pain and PT encourages him to con't with passive motion only at this time Elbow/Forearm Range of Motion Elbow/Forearm ROM Limitations Comments R elbow lacks 30 deg of extension from previous elbow surgery PT-OP-M Strength Start: 01/31/20 07:29 Freq: Status: Active Protocol: Document 01/31/20 08:17 MB (Rec: 01/31/20 14:00 MB [id number]) Shoulder Strength Shoulder Manual Muscle Testing Right Comments All deferred post-op Left Flexion 5 Normal Abduction (C5) 5 Normal External Rotation 4 Good Internal Rotation 5 Normal Elbow/Forearm Strength Elbow and Forearm Manual Muscle Testing Right Pronation 4 Good Supination 4 Good Comments Flexion and extension deferred post-op Left Flexion (C6) 5 Normal Extension (C7) 5 Normal Pronation 5 Normal Supination 5 Normal Wrist Strength Wrist Manual Muscle Testing Right Flexion (C7) 5 Normal Extension (C6) 5 Normal Left Flexion (C7) 5 Normal Extension (C6) 4 Good PT-OP-T Assessment and Plan Start: 01/31/20 07:29 Freq: Status: Active Protocol: Document 02/16/20 13:25 MB (Rec: 02/16/20 13:27 MB [id number]) Physical Therapy Plan Discharge Physical Therapy Discharge Reasons Patient Request Discharge Comments Pt calls to state that he thinks he can do exercises on his own. He cancels appointments. PT calls and leaves message for pt. After last treatment, he left well and with better range of motion, stopping in to wave bye to PT with his right arm after receiving ice. Will d/c PT per pt request.
== END 2020-02-17 15:17 ==
LOC: PHYS 08:15
PROVIDERS: Family Provider Nurse Practitioner Family; PCP Nurse Practitioner Family; Referring Provider Physician Assistant; Visit Provider Orthopaedic Surgery
DX: S46.011D Strain of muscle(s) and tendon(s) of the rotator cuff of right shoulder, subsequent encounter (principal)
CPT/HCPCS: 97110; 97140; 97161

== ENCOUNTER → 2020-03-07 14:20 | Oncology outpatient (ONC) | payer OTHER, MEDICAID, SELFPAY ==
[2020-01-18 15:33] VITALS: BP 110/70; PULSE 80; RESP 18; TEMP 36.8; O2SAT 100
--- NOTE | 2020-01-18 16:08 | ONC.CONS ---
History of Present Illness - Data of Consult Primary Care Provider: AMENA Santiago - Consult Narrative Narrative: Adal Nugent is a 59 year old male referred for further evaluation of thrombocytopenia. Review of his old records shows that in August of 2003 he had a platelet count of 198651 with the otherwise normal CBC. In August of 2018 platelets were 141,000. In December of 2019 he had 2 platelet counts done 1 at 116,119 1000 with giant platelets noted on his peripheral smear. On January 06 when he presented to the emergency room following rotator cuff surgery with a severe episode of pain he was noted to have a hemoglobin of 12.8 hematocrit 38.4 platelets a 100 and 7000 white count 68570. His MCV was elevated 102.9 at that time. PSA was undetectable. Chemistry panel showed a sodium 133 [address] angiogram showed no pulmonary embolism, lymphadenopathy or splenomegaly. PTT was 24 seconds and INR was normal. M since then he has been doing a lot better pain álvarez as he has recovered from his rotator cuff surgery. He now presents for hematology consultation. From his perspective he is generally feeling good. He has some pain on his shoulder that is postoperative. He has lost 5 lb since the surgery. He has noticed a mole on his right axillary region. He does not have any other pain, bleeding, localized weakness, fever, chills, nausea, vomiting, cough, shortness of breath, lumps or bumps, skin rash, or easy bruising. All other systems are negative. Past medical history 1. He is a [employer]. He lives with his friend. He is down to half pack a day of smoking. He has typically had 3 sometimes up to 6 drinks a day. With the coronavirus pandemic he has been home more and his alcohol intake has increased significantly over the last 6 months or so. He is very active at work and generally eats a good diet with fruits and vegetables. 2. A paternal uncle had prostate cancer at an advanced age. He is not aware of any other family history of cancer or blood disorders 3. He has had his recent rotator cuff surgery, and elbow operation and a colonoscopy. He has had no other surgeries. 4. No history of venous thromboembolic disease. 5. He denies high blood pressure, diabetes, rheumatic fever, tuberculosis, heart attacks, strokes, stomach ulcers, pneumonia or any kind of cancer 6. He has no known drug allergies 7. His only current medication is Vicodin as needed. He does not take aspirin or nonsteroidal agents. CC: Neri Christopher MD Home Medications and Allergies Home Medications Medication Instructions Recorded Confirmed Type hydrocodone-acetaminophen 1 tab PRN PRN 01/18/20 01/18/20 History Allergies Allergy/AdvReac Type Severity Reaction Status Date / Time No Known Drug Allergies Allergy Verified 01/02/20 07:35 Medical History - Medical, Surgical, Family History Medical History: Medical History (Last Reviewed 01/07/20 @ 14:41 by Christofer Darling MD) Concussion Decreased platelet count Encounter for screening for malignant neoplasm of prostate Neutropenia Screening for malignant neoplasm of colon Tobacco abuse - Social History Smoking Status: Current every day smoker Review of Systems - Patient Self-Reported Symptoms SR Skin issues: Skin lesions or moles SR Musculoskeletal issues: Joint pain or swelling, Muscle weakness Exam Vital signs: Vital Signs Temp Pulse Resp BP Pulse Ox 01/18/20 15:33 98.3 F 80 18 110/70 100 Intake and Output 01/18/20 01/18/20 01/18/20 07:59 15:59 23:59 Other: Weight 72.6 kg Patient Weight 01/18/20 23:59 Weight 72.6 kg Narrative: He was awake, alert and oriented x3. The right axillary skin lesion was a seborrheic keratosis with no worrisome features. There was no lymphadenopathy in the cervical, supraclavicular, axillary, inguinal or femoral regions. Lungs were clear without wheezes or rales. Heart showed a regular rate and rhythm without murmur, gallop or rub. The abdomen is soft and nontender without organomegaly or masses. There was no evidence of phlebitis in the lower extremities. Assessment and Plan (1) Decreased platelet count Status: Acute Mr. Nugent has a mild thrombocytopenia that is asymptomatic and has been present since August of 2018 when he had a platelet count of a 010994. Older counts are normal. He does not have a bleeding history. There are no findings in his history or physical exam that would suggest an underlying lymphoproliferative disorder or other systemic illness. His white cells and red cells have been maintained which is reassuring. His most recent CBC showed a macrocytosis. He also had giant platelets on his peripheral smear. We will check screening lab studies today including a platelet count in a blue top tube to eliminate any artifactual platelet clumping, B12 and folate levels, reticulocyte count, and TSH. We reviewed there are multiple potential causes of thrombocytopenia. Platelets like white cells and red cells are made in the bone marrow. Primary bone marrow disorders can result in thrombocytopenia. These are often associated with other findings such as lymphadenopathy or hepatosplenomegaly. The these bone marrow conditions are also frequently associated with abnormalities in the white cell count or differential, or anemia. None of these are present which makes it less likely that he has a primary bone marrow disorder. Other causes of thrombocytopenia can include increased platelet destruction. The typical example would be ITP. This can cause chronic thrombocytopenia and would be a potential consideration. He does not have a pr for referring olonged PTT or history of venous thromboembolic disease to suggest anti phospholipid syndrome. We also discussed the fact that thrombocytopenia and macrocytosis can be a consequence of alcohol consumption. He has significantly increased his alcohol consumption over the last several months. I suggested that he try to cut this down to 0-1 drinks per day and that we reassess his blood count in about 6 weeks. If alcohol is playing a role in his thrombocytopenia, I would expect significant improvement, and likely normalization of his platelet count at that time. New Mr. Toni denise had several questions that were answered in detail. I explained that his mole in the right axilla looks like a seborrheic keratosis and does not look malignant. If it bothers him because of its location would be easily removed. I personally spent 47 minutes in today's [id number] visit with greater than 50% of the time spent in counseling regarding the issues outlined above. Impression: 1. Thrombocytopenia, mild 2. Macrocytosis 3. White cells and red cells have been maintained 4. No history of bleeding or venous thromboembolic disease 5. No clinical findings to suggest an underlying lymphoproliferative disorder 6. Significant alcohol intake as outlined above Recommendations: 1. Recheck CBC with manual differential, platelet count in a blue top tube, B12 and folate levels, reticulocyte count, TSH and comprehensive metabolic panel 2. Patient was advised to abstain from alcohol or to reduce his alcohol intake to 0-1 drinks per day over the next 6 weeks 3. Follow-up in 6 weeks with CBC prior 4. Further plans based upon the outcome of these tests and interventions. I would like to thank AMENA Santiago for referring this very pleasant and interesting patient.
[2020-01-18 17:18] LABS: Alanine Aminotransferase 21 IU/L (<50); Albumin 4.3 g/dL (3.5-5.0); Albumin Globulin Ratio 1.5 (1.0-2.8); Alkaline Phosphatase 57 U/L (38-126); Aspartate Aminotransferase 24 IU/L (17-59); BUN Creatinine Ratio 13.1 (6-22); Bilirubin Total 0.4 mg/dL (0.2-1.3); Blood Urea Nitrogen 13 mg/dL (9-20); Calcium 9.1 mg/dL (8.4-10.2); Carbon Dioxide 28 mmol/L (22-32); Chloride 101 mmol/L (98-107); Estimated Glomerular Filt Rate > 60.0 mL/min (>60); Globulin 2.9 g/dL (1.7-4.1); Glucose 105 mg/dL (80-110); HEMOLYSIS < 15 (0-50); Sodium 137 mmol/L (137-145); Total Protein 7.2 g/dL (6.3-8.2)
[2020-01-18 18:01] LABS: Reticulocyte Count, Percent 0.7 % (0.87-2.60)
[2020-01-18 18:03] LABS: Thyroid Stimulating Hormone 2.34 uIU/mL (0.47-4.68)
[2020-01-18 18:10] LABS: Hematocrit 38.6 % (41-53); Hemoglobin 13.4 g/dL (13.5-17.5); Mean Corpuscular HGB Conc 34.9 % (30-36); Mean Corpuscular Hemoglobin 35.5 PG (26-34); Mean Corpuscular Volume 101.7 fL (80-100); Red Blood Cell Count 3.79 X10^6/uL (4.5-5.9); Red Cell Distribution Width 13.3 % (11.6-14.8); White Blood Cell Count 7.9 X10^3/uL (4.5-11.0)
[2020-01-18 18:14] LABS: Platelet Count 140 X10^3/uL (150-400)
[2020-01-18 18:23] LABS: Folate 4.3 ng/mL (2.76-20.0); Vitamin B12 512 pg/mL (239-931)
[2020-01-18 19:50] LABS: Neutrophils Absolute Manual 4582 /uL (3000-5900); Platelet Morphology Comment NOTE; RBC Morphology Normal Morphology; Total Cells Counted 100
[2020-02-28 14:06] LABS: Add Manual Diff / Slide Review NO; Basophils Absolute Auto 100 /uL (0-100); Basophils Percent Auto 0.6 % (0-2); Eosinophils Absolute Auto 0 /uL (0-450); Eosinophils Percent Auto 0.3 % (2-4); Hematocrit 40.5 % (41-53); Hemoglobin 13.6 g/dL (13.5-17.5); Lymphocytes Absolute Auto 2400 /uL (1100-4500); Lymphocytes Percent Auto 24.8 % (25-40); Mean Corpuscular HGB Conc 33.6 % (30-36); Mean Corpuscular Hemoglobin 34.6 PG (26-34); Mean Corpuscular Volume 102.9 fL (80-100); Monocytes Absolute Auto 1600 /uL (0-900); Monocytes Percent Auto 16.3 % (3-14); Neutrophils Absolute Auto 5500 /uL (1500-7000); Platelet Count 128 X10^3/uL (150-400); Red Blood Cell Count 3.93 X10^6/uL (4.5-5.9); White Blood Cell Count 9.5 X10^3/uL (4.5-11.0)
[2020-03-07 15:03] VITALS: BP 140/82; PULSE 80; RESP 18; TEMP 36.4; O2SAT 98
--- NOTE | 2020-03-07 15:19 | ONC.PN ---
PN -Subjective Interval history: Adal Nugent is a 59 year old male who presents for follow-up evaluation of thrombocytopenia. Review of his old records shows that in August of 2003 he had a platelet count of 190685 with the otherwise normal CBC. In August of 2018 platelets were 141,000. In December of 2019 he had 2 platelet counts done 1 at 116,119 1000 with giant platelets noted on his peripheral smear. On January 06 when he presented to the emergency room following rotator cuff surgery with a severe episode of pain he was noted to have a hemoglobin of 12.8 hematocrit 38.4 platelets a 100 and 7000 white count . His MCV was elevated 102.9 at that time. PSA was undetectable. Chemistry panel showed a sodium 133 [address] angiogram showed no pulmonary embolism, lymphadenopathy or splenomegaly. PTT was 24 seconds and INR was normal. M since then he has been doing a lot better pain álvarez as he has recovered from his rotator cuff surgery. He was seen for Hematology consultation for hematology consultation January 17, had screening blood studies done at that time, and comes today for a scheduled 6 week follow-up. At the time of the last visit we discussed discontinuation of alcohol. He did stop briefly and has had several times he states when he went several days without drinking. Overall, he feels like his alcohol intake is about in the same range that it was previously. From his perspective he is generally feeling good. He has some pain on his shoulder that is postoperative. It has gotten much better over time. He has lost 5 lb since the surgery. He has noticed a mole on his right axillary region. He does not have any other pain, bleeding, localized weakness, fever, chills, nausea, vomiting, cough, shortness of breath, lumps or bumps, skin rash, or easy bruising. All other systems are negative. Past medical history 1. He is a [employer]. He lives with his friend. He is down to half pack a day of smoking. He has typically had 3 sometimes up to 6 drinks a day. With the coronavirus pandemic he has been home more and his alcohol intake has increased significantly over the last 6 months or so. He is very active at work and generally eats a good diet with fruits and vegetables. 2. A paternal uncle had prostate cancer at an advanced age. He is not aware of any other family history of cancer or blood disorders 3. He has had his recent rotator cuff surgery, and elbow operation and a colonoscopy. He has had no other surgeries. 4. No history of venous thromboembolic disease. 5. He denies high blood pressure, diabetes, rheumatic fever, tuberculosis, heart attacks, strokes, stomach ulcers, pneumonia or any kind of cancer 6. He has no known drug allergies 7. His only current medication is Vicodin as needed. He does not take aspirin or nonsteroidal agents. - Patient Self-Reported Symptoms SR Skin issues: Skin lesions or moles SR Musculoskeletal issues: Joint pain or swelling, Muscle weakness Home Medications and Allergies Home Medications Medication Instructions Recorded Confirmed Type hydrocodone-acetaminophen 1 tab PRN PRN 01/18/20 01/18/20 History Allergies Allergy/AdvReac Type Severity Reaction Status Date / Time No Known Drug Allergies Allergy Verified 01/02/20 07:35 Exam Vital signs: Vital Signs Temp Pulse Resp BP Pulse Ox 03/07/20 15:03 97.6 F 80 18 140/82 98 Intake and Output 03/06/20 03/07/20 03/07/20 23:59 07:59 15:59 Other: Weight 75 kg Patient Weight 03/07/20 23:59 Weight 75 kg Narrative: He was awake, alert and oriented x3. He was in no acute distress. Results - Labs Laboratory Last Values WBC 9.5 X10^3/uL (4.5-11.0) 02/28/20 13:59 RBC 3.93 X10^6/uL (4.5-5.9) L 02/28/20 13:59 Hgb 13.6 g/dL (13.5-17.5) 02/28/20 13:59 Hct 40.5 % (41-53) L 02/28/20 13:59 MCV 102.9 fL (80-100) H 02/28/20 13:59 MCH 34.6 PG (26-34) H 02/28/20 13:59 MCHC 33.6 % (30-36) 02/28/20 13:59 RDW 14.0 % (11.6-14.8) 02/28/20 13:59 Plt Count 128 X10^3/uL (150-400) L 02/28/20 13:59 Neut % (Auto) 58.0 % (50-75) 02/28/20 13:59 Lymph % (Auto) 24.8 % (25-40) L 02/28/20 13:59 [place] % (Auto) 16.3 % (3-14) H 02/28/20 13:59 Eos % (Auto) 0.3 % (2-4) L 02/28/20 13:59 Baso % (Auto) 0.6 % (0-2) 02/28/20 13:59 Neut # (Auto) 5500 /uL (2085-0642) 02/28/20 13:59 Lymph # (Auto) 2400 /uL (3144-8132) 02/28/20 13:59 [place] # (Auto) 1600 /uL (0-900) H 02/28/20 13:59 Eos # (Auto) 0 /uL (0-450) 02/28/20 13:59 Baso # (Auto) 100 /uL (0-100) 02/28/20 13:59 Total Counted 100 01/18/20 16:42 Seg Neutrophils % 58.0 % (38-70) 01/18/20 16:42 Lymphocytes % (Manual) 30.0 % (25-45) 01/18/20 16:42 Monocytes % (Manual) 10.0 % (2-11) 01/18/20 16:42 Eosinophils % (Manual) 1.0 % (2-4) L 01/18/20 16:42 Basophils % (Manual) 1.0 % (0-1) 01/18/20 16:42 Neutrophils # (Manual) 4582 /uL (7555-2109) 01/18/20 16:42 Plt Morphology Comment Note 01/18/20 16:42 RBC Morphology Normal morphology 01/18/20 16:42 Percent Retic 0.7 % (0.87-2.60) L 01/18/20 16:42 Sodium 137 mmol/L (137-145) 01/18/20 16:42 Potassium 4.0 mmol/L (3.4-5.1) 01/18/20 16:42 Chloride 101 mmol/L (98-107) 01/18/20 16:42 Carbon Dioxide 28 mmol/L (22-32) 01/18/20 16:42 BUN 13 mg/dL (9-20) 01/18/20 16:42 Creatinine 0.99 mg/dL (0.66-1.25) 01/18/20 16:42 Estimated GFR > 60.0 mL/min (>60) 01/18/20 16:42 BUN/Creatinine Ratio 13.1 (6-22) 01/18/20 16:42 Glucose 105 mg/dL (80-110) 01/18/20 16:42 Calcium 9.1 mg/dL (8.4-10.2) 01/18/20 16:42 Total Bilirubin 0.4 mg/dL (0.2-1.3) 01/18/20 16:42 AST 24 IU/L (17-59) 01/18/20 16:42 ALT 21 IU/L (<50) 01/18/20 16:42 Alkaline Phosphatase 57 U/L (38-126) 01/18/20 16:42 Total Protein 7.2 g/dL (6.3-8.2) 01/18/20 16:42 Albumin 4.3 g/dL (3.5-5.0) 01/18/20 16:42 Globulin 2.9 g/dL (1.7-4.1) 01/18/20 16:42 Albumin/Globulin Ratio 1.5 (1.0-2.8) 01/18/20 16:42 Vitamin B12 512 pg/mL (239-931) 01/18/20 16:42 Folate 4.3 ng/mL (2.76-20.0) 01/18/20 16:42 TSH 2.34 uIU/mL (0.47-4.68) 01/18/20 16:42 Assessment and Plan (1) Decreased platelet count Status: Acute Mr. Nugent has a mild thrombocytopenia that is asymptomatic and has been present since August of 2018 when he had a platelet count of a 415249. Older counts are normal. Screening labs with B12, folate, reticulocyte count and TSH were normal. He has on his peripheral smear 2+ large platelets and 1+ giant platelets. I explained that these are multiple platelets clumped together that her count today as a single platelet by the machine. Accordingly, this would correlate with normal hemostatic capacity. His MCV remains slightly elevated. Explained that his hematologic findings are likely a consequence of alcohol intake. Were not finding any evidence of a nutritional deficiency, other metabolic disorder, or any significant changes in his white cells and red cells to suggest an underlying bone marrow condition. I explained that I would expect these findings to parallel his alcohol intake. We did discuss the importance of moderate in his alcohol intake and he will take that under advisement but does not think these in a position where he wants to stop drinking. Will plan to get him back in about 6 months for a follow-up blood count. I explained the main a purpose of this would be to make sure that there is no evolution of his blood picture that might suggest the presence of an underlying bone marrow disorder that would warrant further intervention such as a bone marrow examination. He was agreeable to this approach. Impression: 1. Thrombocytopenia, mild with large and giant platelets on peripheral smear 2. Macrocytosis 3. White cells and red cells have been maintained 4. No history of bleeding or venous thromboembolic disease 5. No clinical findings to suggest an underlying lymphoproliferative disorder 6. Significant alcohol intake as outlined above, likely the cause of his hematologic abnormalities Recommendations: 1. Patient was counseled about alcohol being the likely cause of his hematologic findings 2. He will return in 6 months for a follow-up blood count 3. Would be inclined to defer further workup unless he has a significant change in his blood picture over time
--- NOTE | 2020-03-08 10:12 | ONC.SCHED ---
left msg. for patient to schedule 6 month fup with labs prior.
== END ==
PROVIDERS: PCP Nurse Practitioner Family; Referring Provider Nurse Practitioner Family; Visit Provider Internal Medicine
DX: D69.6 Thrombocytopenia, unspecified (principal); Z72.89 Other problems related to lifestyle; D75.89 Other specified diseases of blood and blood-forming organs; F17.210 Nicotine dependence, cigarettes, uncomplicated
CPT/HCPCS: 36415; 80053; 82607; 82746; 84443; 85025; 85045; 99204; 99213; 99214

== ENCOUNTER → 2021-10-30 09:39 | Outpatient (CLI) | payer OTHER, MEDICAID, SELFPAY ==
--- NOTE | 2021-10-30 09:42 | DI.RAD.S_ITS ---
PROCEDURE: XR SHOULDER RT MIN 2V INDICATIONS: right shoulder trauma TECHNIQUE: Three views of the shoulder were acquired. COMPARISON: [facility], CR, XR SHOULDER RT MIN 2V, 12/07/2019, 8:32. FINDINGS: Bones: No fractures or dislocations. Interval AC joint debridement. Ovoid lucencies in the lateral humeral head may be postsurgical or degenerative. Minor glenohumeral joint spurring. No suspicious bony lesions. Visualized ribs appear intact. Soft tissues: No suspicious soft tissue calcifications. IMPRESSION: 1. No fracture, dislocation, or separation of the right shoulder. 2. 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 Dictated by: Yasmine Olivares M.D. on 10/30/2021 at 11:07 Approved by: Yasmine Olivares M.D. on 10/30/2021 at 11:08
== END ==
PROVIDERS: Family Provider Nurse Practitioner Family; PCP Family Medicine; Referring Provider Student in an Organized Health Care Education/Training Program; Visit Provider Student in an Organized Health Care Education/Training Program
DX: S49.91XA Unspecified injury of right shoulder and upper arm, initial encounter (principal)
CPT/HCPCS: 73030

== ENCOUNTER → 2022-02-14 09:43 | Outpatient (CLI) | payer OTHER, MEDICAID, SELFPAY ==
[2022-02-14 11:02] LABS: Alanine Aminotransferase 16 IU/L (<50); Albumin 4.5 g/dL (3.5-5.0); Albumin Globulin Ratio 1.5 (1.0-2.8); Alkaline Phosphatase 58 U/L (38-126); Aspartate Aminotransferase 24 IU/L (17-59); BUN Creatinine Ratio 20.2 (6-22); Bilirubin Total 0.4 mg/dL (0.2-1.3); Blood Urea Nitrogen 19 mg/dL (9-20); Calcium 9.4 mg/dL (8.4-10.2); Carbon Dioxide 22 mmol/L (22-32); Chloride 105 mmol/L (98-107); Cholesterol 201 mg/dL (140-199); Estimated Glomerular Filt Rate > 60 mL/min (>60); Glucose 103 mg/dL (80-110); HDL Cholesterol 102 mg/dL (40-60); HEMOLYSIS < 15 (0-50); LDL Cholesterol Calculated 92 mg/dL (<100); Potassium 4.6 mmol/L (3.4-5.1); Sodium 138 mmol/L (137-145); Total Protein 7.5 g/dL (6.3-8.2); Triglycerides 37 mg/dL (35-150)
[2022-02-14 11:18] LABS: Add Manual Diff / Slide Review NO; Basophils Absolute Auto 0 /uL (0-100); Basophils Percent Auto 0.2 % (0-2); Eosinophils Absolute Auto 0 /uL (0-450); Eosinophils Percent Auto 0.3 % (2-4); Hematocrit 40.9 % (41-53); Hemoglobin 14.2 g/dL (13.5-17.5); Lymphocytes Absolute Auto 2200 /uL (1100-4500); Mean Corpuscular HGB Conc 34.8 % (30-36); Mean Corpuscular Hemoglobin 35.1 PG (26-34); Mean Corpuscular Volume 100.7 fL (80-100); Monocytes Absolute Auto 1000 /uL (0-900); Monocytes Percent Auto 13.3 % (3-14); Neutrophils Absolute Auto 4000 /uL (1500-7000); Neutrophils Percent Auto 56.2 % (50-75); Red Blood Cell Count 4.06 X10^6/uL (4.5-5.9); Red Cell Distribution Width 13.8 % (11.6-14.8); White Blood Cell Count 7.2 X10^3/uL (4.5-11.0)
[2022-02-14 11:29] LABS: Prostate Specific Antigen 0.345 ng/mL (0.10-4.00)
[2022-02-14 11:44] LABS: Platelet Count 88 X10^3/uL (150-400)
== END ==
PROVIDERS: Family Provider Nurse Practitioner Family; PCP Family Medicine; Referring Provider Family Medicine; Visit Provider Family Medicine
DX: Z00.00 Encounter for general adult medical examination without abnormal findings (principal); S49.91XA Unspecified injury of right shoulder and upper arm, initial encounter; D70.9 Neutropenia, unspecified
CPT/HCPCS: 36415; 80053; 80061; 84153; 85025

== ENCOUNTER → 2022-02-20 07:17 | Outpatient (CLI) | payer OTHER, MEDICAID, SELFPAY ==
--- NOTE | 2022-02-20 07:19 | DI.MRI.S_ITS ---
PROCEDURE: MR SHOULDER RT WO CON INDICATIONS: Persistence of symptoms, weakness on exam TECHNIQUE: Noncontrast oblique coronal T2 fast spin echo with fat saturation, oblique sagittal T1 spin echo and T2 fast spin echo with fat saturation, axial T1 spin echo and T2 fast spin echo with fat saturation through the shoulder. COMPARISON: [facility], MR, MR SHOULDER RT WO CON, 12/15/2019, 7:37. FINDINGS: Image quality: Slightly motion degraded Rotator cuff: Moderate atrophy of the supraspinatus. Sequela of prior rotator cuff repair. Teres minor: Intact Supraspinatus: Full-thickness tear as before with tendinous retraction to the level of the acromion Infraspinatus: Tendinosis and partial-thickness tear at the articular surface. There is also bursal sided fraying. Superimposed tendinosis. Subscapularis: Tendinosis. Bones and bursae: GH joint: [id number] degenerative changes and cartilage thinning. There is an effusion. AC joint: Moderate degenerative changes Humeral head: Unremarkable. Scapula and acromion: Suspected prior distal clavicle resection Bursa: Moderate amount of fluid Capsule: Labrum: Not well evaluated in the absence of intra-articular contrast. Suspected superior labral tear is present. There is probably chronic degeneration. Long head biceps tendon: Not well seen in the intra-articular aspect and bicipital groove IGHL: Intact Rotator interval: Partial effacement of the fat Soft tissues: No axillary adenopathy. Lungs are not well seen. IMPRESSION: Recurrence at full-thickness tear with tendinous retraction of the supraspinatus. Partial thickness defects/tendinosis of the infraspinatus and subscapularis Moderate atrophy of the supraspinatus. Suspected superior labral tear and chronic degeneration . Glenohumeral joint effusion and bursal fluid. Other findings as above. Dictated by: Tee Sanchez M.D. on 02/20/2022 at 11:53 Approved by: Tee Sanchez M.D. on 02/20/2022 at 12:01
== END ==
PROVIDERS: Family Provider Nurse Practitioner Family; PCP Family Medicine; Referring Provider Family Medicine; Visit Provider Family Medicine
DX: S46.011A Strain of muscle(s) and tendon(s) of the rotator cuff of right shoulder, initial encounter (principal); M12.811 Other specific arthropathies, not elsewhere classified, right shoulder; M25.411 Effusion, right shoulder; X58.XXXA Exposure to other specified factors, initial encounter
CPT/HCPCS: 73221

== ENCOUNTER 2023-01-25 09:11 | Emergency (ER) | payer OTHER, MEDICAID, SELFPAY ==
[2023-01-25 09:24] VITALS: BP 201/97; PULSE 83; RESP 16; TEMP 36.8; O2SAT 100; BMI 266.4
--- NOTE | 2023-01-25 09:29 | DI.CT.S_ITS ---
PROCEDURE: CT HEAD/BRAIN WO CON INDICATIONS: garage door fell on head/behind L ear pain/dizzy TECHNIQUE: Noncontrast 4.5 mm thick angled axial sections acquired from the foramen magnum to the vertex, with coronal and sagittal reformats. For radiation dose reduction, the following was used: automated exposure control, adjustment of mA and/or kV according to patient size. COMPARISON: None. FINDINGS: Image quality: Excellent. CSF spaces: Basal cisterns are patent. No extra-axial fluid collections. Ventricles are normal in size and shape. Brain: No midline shift. No intracranial masses or hemorrhage. Ghosh-white matter interface is normal. Skull and face: Calvarium and visualized facial bones are intact, without suspicious lesions. Sinuses: Visualized sinuses and mastoids are clear. IMPRESSION: No acute intracranial pathology. Dictated by: Robles Fountain M.D. on 01/25/2023 at 9:51 Approved by: Robles Fountain M.D. on 01/25/2023 at 9:54
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
== END 2023-01-25 10:52 | disposition home or self-care (01) ==
PROVIDERS: Emergency Provider Emergency Medicine; PCP Family Medicine
DX: S09.90XA Unspecified injury of head, initial encounter (principal); R42 Dizziness and giddiness; W22.8XXA Striking against or struck by other objects, initial encounter
CPT/HCPCS: 70450; 99283; 99284